=== PATIENT | female | born 1965 | race Caucasian/White ===

== ENCOUNTER 2018-09-28 18:43 | Emergency (ER) | payer OTHER ==
[~2018-09-28] VITALS: Ht 162.6 cm; Wt 76.2 kg
--- NOTE | 2018-09-29 16:59 | EKG ---
[facility] [address] [facility] [place], [place] [address] Signed Normal sinus rhythm Minimal voltage criteria for LVH, may be normal variant Cannot rule out Anterior infarct , age undetermined Abnormal ECG No previous ECGs available Confirmed by MAKENNA ESCAMILLA DO ([id number]) on 09/29/2018 4:59:42 PM Electronically Signed By: MAKENNA ESCAMILLA DO 09/29/18 1659 PATIENT NAME: PEARLJENNI Electrocardiogram DATE OF : 61 PHYSICIAN: MAKENNA ESCAMILLA DO REPORT #: [id number] REPORT IS CONFIDENTIAL AND NOT TO BE RELEASED WITHOUT AUTHORIZATION
== END 2018-09-28 22:30 | disposition home or self-care (01) ==
LOC: ED 18:43
DX: R55 Syncope and collapse (principal); Z88.6 Allergy status to analgesic agent
CPT/HCPCS: 71045; 80053; 81001; 83690; 84484; 85025; 93005; 93010; 96374; 99284-25; C9113; J7030

== ENCOUNTER 2021-06-05 12:48 | Emergency (ER) | payer OTHER ==
[~2021-06-05] VITALS: Ht 162.6 cm; Wt 76.2 kg
[2021-06-05] MEDS ORDERED: ZESTORETIC 20-1 EACH PO (14:49)
--- NOTE | 2021-06-06 13:48 | EKG ---
[facility] [address] [facility] [place], [place] [address] Signed Normal sinus rhythm Cannot rule out Anterior infarct , age undetermined Abnormal ECG No previous ECGs available Confirmed by GUSTAVO LIU MD ([id number] on 06/06/2021 1:48:34 PM Electronically Signed By: GUSTAVO LIU MD 06/06/21 1348 PATIENT NAME: JENNI PEARL AMANDO Electrocardiogram DATE OF : 61 PHYSICIAN: GUSTAVO LIU MD REPORT #: [id number] REPORT IS CONFIDENTIAL AND NOT TO BE RELEASED WITHOUT AUTHORIZATION
== END 2021-06-05 15:00 | disposition home or self-care (01) ==
LOC: ED 12:48
DX: I10 Essential (primary) hypertension (principal); R20.2 Paresthesia of skin; Z88.6 Allergy status to analgesic agent
CPT/HCPCS: 70450; 71045; 80053; 83735; 84484; 85025; 93005; 93010; 99284-25